=== PATIENT | male | born 2000 | race Caucasian/White ===

== ENCOUNTER 2020-10-10 12:07 | Emergency (ER) | payer MEDICAID, OTHER ==
[~2020-10-10] VITALS: Ht 175.3 cm; Wt 125.0 kg
--- NOTE | 2020-10-10 12:44 | PHYS DOC ---
Past History Past Medical History: Other Additional Past Medical Histor: Palpatations (SAWYER VELAZQUEZ APRN) Past Surgical History: Other Additional Past Surgical Histo: hernia (SAWYER VELAZQUEZ APRN) Alcohol Use: None (SAWYER VELAZQUEZ APRN) General Adult EDM: Chief Complaint: ABDOMINAL PAIN HPI: HPI: Patient is a 20-year-old male who presents with abdominal pain. Patient states on Friday he was working on his truck and the milk crate he was standing on slipped out from under him. Patient states that he fell directly on the márquez latch, and then fell to the ground onto his back. Patient is reporting abdominal pain, nausea. Patient denies hitting his head or loss of consciousness. Patient states that he has been taking ibuprofen and hydrocodone at home for pain with no relief. Patient has history of arrhythmia and asthma. (SAWYER VELAZQUEZ APRN) Review of Systems: Review of Systems: Constitutional: Denies fever or chills Eyes: Denies change in visual acuity HENT: Denies nasal congestion or sore throat Respiratory: Denies cough or shortness of breath Cardiovascular: Denies chest pain or edema GI: Reports abdominal pain, nausea. Denies vomiting, bloody stools or diarrhea : Denies dysuria Musculoskeletal: Denies back pain or joint pain Integument: Denies rash Neurologic: Denies headache, focal weakness or sensory changes Endocrine: Denies polyuria or polydipsia Lymphatic: Denies swollen glands Psychiatric: Denies depression or anxiety (SAWYER VELAZQUEZ APRN) Allergies: Allergies: Allergies Coded Allergies Type Severity Reaction Last Updated Verified shellfish derived Allergy Unknown 10/10/20 Yes (SAWYER VELAZQUEZ APRN) Physical Exam: PE: Constitutional: Well developed, well nourished, no acute distress, non-toxic appearance. [] HENT: Normocephalic, atraumatic, bilateral external ears normal, oropharynx moist, no oral exudates, nose normal. [] Eyes: PERRLA, EOMI, conjunctiva normal, no discharge. [] Neck: Normal range of motion, no tenderness, supple, no stridor. [] Cardiovascular:Heart rate regular rhythm, no murmur [] Lungs & Thorax: Bilateral breath sounds clear to auscultation [] Abdomen: Bowel sounds normal, soft, generalized tenderness Skin: Warm, dry, no erythema, no rash. [] Back: No tenderness, no CVA tenderness. [] Extremities: No tenderness, no cyanosis, no clubbing, ROM intact, no edema. [] Neurologic: Alert and oriented X 3, normal motor function, normal sensory function, no focal deficits noted. [] Psychologic: Affect normal, judgement normal, mood normal. [] (SAWYER VELAZQUEZ APRN) Current Patient Data: Vital Signs: Vital Signs Date Time Temp Pulse Resp B/P (MAP) Pulse Ox O2 Delivery O2 Flow Rate FiO2 10/10/20 12:16 98.2 76 16 136/86 (103) 98 Room Air (SAWYER VELAZQUEZ APRN) EKG: EKG: [] (SAWYER VELAZQUEZ APRN) Radiology/Procedures: Radiology/Procedures: []EXAMINATION: (CT ABDOMEN WITHOUT IV CONTRAST) CLINICAL HISTORY: FALL ONTO TAILGATE, ABDOMINAL PAIN TECHNIQUE: CT of the abdomen was performed using standard technique, scanning from just above the dome of the diaphragm to the iliac crests without intravenous contrast. CT Dose Reduction Employed: One or more of the following individualized dose re duction techniques were utilized for this examination: 1. Automated exposure control 2. Adjustment of the mA and/or kV according to patient size 3. Use of iterative reconstruction technique. COMPARISON: None FINDINGS: Partially visualized heart and lung bases unremarkable. Liver, gallbladder, pancreas, spleen, and adrenal glands unremarkable. Small nonobstructive calculi in the lower pole the right kidney. Kidneys otherwise unremarkable. Partially visualized small bowel and colon demonstrate no evidence of abnormal dilation. Level of the appendix not included on the available images. No abdominal aortic aneurysm. Prominent to borderline enlarged mesenteric lymph nodes throughout the abdomen measuring up to 1 cm in short axis within the right lower quadrant. No evidence of acute osseous abnormality. IMPRESSION: No evidence of acute abdominal abnormality. Prominent to borderline enlarged mesenteric lymph nodes as described, nonspecific but possibly reactive or related to mesenteric adenitis. Electronically signed by: Eduardo Barahona DO (10/10/2020 1:27 PM) [facility] (SAWYER VELAZQUEZ APRN) Heart Score: C/O Chest Pain: No Risk Factors: Risk Factors: DM, Current or recent (<one month) smoker, HTN, HLP, family history of CAD, obesity. Risk Scores: Score 0 - 3: 2.5% MACE over next 6 weeks - Discharge Home Score 4 - 6: 20.3% MACE over next 6 weeks - Admit for Clinical Observation Score 7 - 10: 72.7% MACE over next 6 weeks - Early Invasive Strategies (SAWYER VELAZQUEZ APRN) Course & Med Decision Making: Course & Med Decision Making Pertinent Labs and Imaging studies reviewed. (See chart for details) [] Patient has been seen in the emergency room with generalized abdominal pain after a fall on Friday. Patient states he was working under the márquez of his truck, standing on a milk crate, when the milk crate fell out from underneath him. Patient states he fell directly onto the márquez latch, and then fell to the ground onto his back. Patient is reporting abdominal pain, nausea since Friday. CT of abdomen ordered to rule out any laceration or injury. UA ordered to rule hematuria. Chest x-ray ordered to rule out any fractures. CBC and BMP ordered. Patient is alert and oriented. Patient is hemodynamically stable. Chest x-ray is negative for any acute abnormalities. All labs unremarkable. WBCs 11.0, hemoglobin 14.7, creatinine 0.9. CT of abdomen without contrast ordered due to possible allergy to contrast. Patient is requesting medication for pain. 4mg, morphine given. CT of abdomen is negative for any acute abnormalities. Patient instructed to take ibuprofen and Tylenol at home for discomfort. Patient to follow-up with PCP for further evaluation. Patient seen and hemodynamically stable and able to ambulate on his own of the emergency room. Patient is appreciative and okay with discharge plan. (SAWYER VELAZQUEZ APRN) Dragon Disclaimer: Alexsander Disclaimer: This electronic medical record was generated, in whole or in part, using a voice recognition dictation system. (SAWYER VELAZQUEZ APRN) Attending Co-Sign The patient was seen and interviewed as well as examined at the bedside. The chart was reviewed. The case was discussed. Agree with the plan of care. (BRAIN ARMENDARIZ DO) Departure Departure: Impression: Primary Impression: Abdominal trauma Qualified Codes: S39.91XA - Unspecified injury of abdomen, initial encounter Disposition: HOME / SELF CARE / HOMELESS Condition: STABLE Referrals: JAMMIE MUHAMMAD MD (PCP) Patient Instructions: Abdominal Pain Additional Instructions: You are seen in the emergency room for abdominal pain after a fall onto your foot latch. We did a CT of your abdomen which was negative for any acute abnormalities. Your chest x-ray was negative. All of your lab work was unremarkable. You can take ibuprofen and Tylenol at home for discomfort. Please follow-up with your PCP for further management. Please return to the emergency room with worsening symptoms or concerns. EMERGENCY DEPARTMENT GENERAL DISCHARGE INSTRUCTIONS Thank you for coming to [facility] (ED) today and trusting us with you care. We trust that you had a positivie experience in our Emergency Department. If you wish to speak to the department management, you may call the director at [phone]. YOUR FOLLOW UP INSTRUCTIONS ARE FOLLOWS: 1. Do you have a private Doctor? If you do not have a private doctor, please ask for a resource list of physicians or clinics that may be able to assist you with follow up care. 2. The Emergency Physician has interpreted your x-rays. The X-Ray specialist will also review them. If there is a change in the findings, you will be notified in 48 hours when at all possible. 3. A lab test or culture has been done, your results will be reviewed and you will be notified if you need a change in treatment. ADDITIONAL INSTRUCTIONS AND INFORMATION: 1. Your care today has been supervised by a physician who is specially trained in emergency care. Many problems require more than one evaluation for a complete diagnosis and treatment. We recommend that you schedule your follow up appointment as recommended to ensure complete treatment of you illness or injury. If you are unable to obtain follow up care and continue to have a problem, or if your condition worsens, we recommend that you return to the ED. 2. We are not able to safely determine your condition over the phone nor are we able to give sound medical advice over the phone. For these safety reasons, if you call for medical advice we will ask you to come to the ED for further evaluation. 3. If you have any questions regarding these discharge instructions please call the ED at [phone]. SAFETY INFORMATION: In the interest of safety, wellness, and injury prevention; we encourage you to wear your sealbelt, if you smoke; quite smoking, and we encourage family to use a protective helmet for bicycling and other sporting events that present an increased risk for head injury. IF YOUR SYMPTOMS WORSEN OR NEW SYMPTOMS DEVELOP, OR YOU HAVE CONCERNS ABOUT YOUR CONDITION; OR IF YOUR CONDITION WORSENS WHILE YOU ARE WAITING FOR YOUR FOLLOW UP APPOINTMENT; EITHER CONTACT YOUR PRIMARY CARE DOCTOR, THE PHYSICIAN WHOSE NAME AND NUMBER YOU WERE GIVEN, OR RETURN TO THE ED IMMEDIATELY. SAWYER VELAZQUEZ APRN October 10, 2020 12:44 BRAIN ARMENDARIZ DO October 13, 2020 08:23
[2020-10-10] MEDS ORDERED: IOHEXOL 300 MG/ML 75 ML VIAL. IV ONE (12:45)
[2020-10-10] MEDS ORDERED: CONTRAST GIVEN. MC PRN (13:00)
[2020-10-10 13:02] LABS: BASO # 0.1 x10^3/uL (0.0-0.2); BASO % 1 % (0-3); EOS # 0.1 x10^3/uL (0.0-0.7); EOS % 1 % (0-3); HEMATOCRIT 44.4 % (39.0-53.0); HEMOGLOBIN 14.7 g/dL (13.0-17.5); LYMPH # 1.9 x10^3/uL (1.0-4.8); LYMPH % 18 % (24-48); MEAN CORPUSCULAR HEMOGLOBIN 28 pg (25-35); MEAN CORPUSCULAR HGB CONC 33 g/dL (31-37); MEAN CORPUSCULAR VOLUME 84 fL (79-100); MONO # 0.8 x10^3/uL (0.0-1.1); MONO % 7 % (0-9); NEUT # 8.1 x10^3uL (1.8-7.7); NEUT % 74 % (31-73); PLATELET COUNT 298 x10^3/uL (140-400); RED BLOOD COUNT 5.27 x10^6/uL (4.30-5.70); RED CELL DISTRIBUTION WIDTH 14.7 % (11.5-14.5)
[2020-10-10 13:08] LABS: CALCIUM 9.1 mg/dL (8.5-10.1); CREATININE 0.9 mg/dL (0.7-1.3); GFR 105.5; POTASSIUM 3.9 mmol/L (3.5-5.1)
--- NOTE | 2020-10-10 13:15 | RAD ---
Single AP view of the chest. Comparison: None. Indication: Pain after fall Findings: The heart is not enlarged. There is no pneumothorax or effusion. No air space or interstitial diseas e. Impression: 1. No acute cardiopulmonary process. Electronically signed by: Stephen Rhodes MD (10/10/2020 1:12 PM) [id number]
--- NOTE | 2020-10-10 13:29 | RAD ---
EXAMINATION: (CT ABDOMEN WITHOUT IV CONTRAST) CLINICAL HISTORY: FALL ONTO TAILGATE, ABDOMINAL PAIN TECHNIQUE: CT of the abdomen was performed using standard technique, scanning from just above the dom e of the diaphragm to the iliac crests without intravenous contrast. CT Dose Reduction Employed: One or more of the following individualized dose reduction techniques wer e utilized for this examination: 1. Automated exposure control 2. Adjustment of the mA and/or kV ac cording to patient size 3. Use of iterative reconstruction technique. COMPARISON: None FINDINGS: Partially visualized heart and lung bases unremarkable. Liver, gallbladder, pancreas, spleen, and adrenal glands unremarkable. Small nonobstructive calculi in the lower pole the right kidney. Kidneys otherwise unremarkable. Partially visualized small bowel and colon demonstrate no evidence of abnormal dilation. Level of the appendix not included on the available images. No abdominal aortic aneurysm. Prominent to borderline enlarged mesenteric lymph nodes throughout the abdomen measuring up to 1 cm in short axis within the right lower quadrant. No evidence of acute osseous abnormality. IMPRESSION: No evidence of acute abdominal abnormality. Prominent to borderline enlarged mesenteric lymph nodes as described, nonspecific but possibly reacti ve or related to mesenteric adenitis. Electronically signed by: Eduardo Barahona DO (10/10/2020 1:27 PM) [facility]
[2020-10-10] MEDS ORDERED: MORPHINE SULFATE 4 MG/ML DISP.SYRIN. IV ONE (13:30)
[2020-10-10 14:01] LABS: CLARITY,URINE CLEAR; COLOR,URINE YELLOW
[2020-10-10 14:02] LABS: BACTERIA,URINE 0 /HPF (0-FEW); BILIRUBIN,URINE NEG (NEG); GLUCOSE,URINE NEG (NEG); NITRITE,URINE NEG (NEG); SQUAMOUS EPITHELIAL CELL,UR FEW /LPF
[2020-10-10 14:03] VITALS: BP 135/76
== END 2020-10-10 14:02 | disposition home or self-care (01) ==
LOC: ER 12:19
DX: S39.91XA Unspecified injury of abdomen, initial encounter (principal); Z91.013 Allergy to seafood; W17.89XA Other fall from one level to another, initial encounter; Y93.89 Activity, other specified; Y92.89 Other specified places as the place of occurrence of the external cause; Y99.8 Other external cause status
CPT/HCPCS: 36415; 71045; 74160; 80048; 81001; 85025; 96374; 99285; J2270

== ENCOUNTER 2020-10-11 11:58 | Emergency (ER) | payer MEDICAID ==
[~2020-10-11] VITALS: Ht 175.3 cm; Wt 125.0 kg
[2020-10-11 12:02] VITALS: BP 148/100
[2020-10-11] MEDS ORDERED: BUTALB/APAP/CAFEIN 50/325/40MG TABLET. PO STA (12:54)
[2020-10-11] MEDS ORDERED: DEXAMETHASONE 4 MG TABLET PO ONE (13:00)
--- NOTE | 2020-10-11 13:19 | PHYS DOC ---
Past History Past Medical History: Other Additional Past Medical Histor: Palpatations (FARZAD NICHOLAS APRN) Past Surgical History: Other Additional Past Surgical Histo: hernia (FARZAD NICHOLAS APRN) Alcohol Use: None (FARZAD NICHOLAS APRN) Adult General Chief Complaint Chief Complaint: HEADACHE HPI HPI Patient is a 20-year-old male presents to the emergency department with complaints of a sudden onset of head pain and discomfort with photophobia and nausea that started last Friday night after a slip and fall from a milk crate he was standing on in which he landed on his abdomen which struck the front of a márquez latch, patient states that he woke up on the ground, is not sure if he lost consciousness or not, is not sure if he hit his head, states he does not rememb er the fall. Patient states he was seen here yesterday for abdominal pain and nausea, had some tests run in the emergency department, states he was given morphine and other pain medications that did not help his current 10/10 pain on a 1-10 pain scale. Patient states he was discharged with a 10/10 pain, was told to take Tylenol and/or Motrin for ongoing aches and pains, patient states these medications do not help him with his pain. Patient reports a allergy to iodine, reports a past medical history of rapid heart rate in which he takes prescription metoprolol for, reports a history of asthma. Patient states his primary care physician is Dr. Muhammad. Patient denies any other physical complaints or physical concerns. (FARZAD NICHOLAS APRN) Review of Systems Review of Systems 14 body systems of review of systems have been reviewed. See HPI for pertinent positives and negative responses, otherwise all other systems are negative, nonpertinent or noncontributory. (FARZAD NICHOLAS APRN) Current Medications Current Medications Current Medications Medications (Trade) Dose Ordered Sig/Zachery Start Time Stop Time Status Last Admin Dose Admin Acetaminophen/ Butalbital/ Caffeine (Fioricet) 1 tab 1X STAT 10/11/20 12:54 10/11/20 12:58 DC Dexamethasone (Decadron) 4 mg 1X ONCE 10/11/20 13:00 10/11/20 13:01 DC (FARZAD NICHOLAS APRN) Allergies Allergies Allergies Coded Allergies Type Severity Reaction Last Updated Verified shellfish derived Allergy Unknown 10/10/20 Yes (FARZAD NICHOLAS APRN) Physical Exam Physical Exam Constitutional: Well developed, well nourished, no acute distress, non-toxic appearance. 20-year-old male in no apparent distress. HENT: Normocephalic, atraumatic, bilateral external ears normal, oropharynx moist, no oral exudates, nose normal. Oropharynx moist, pink, no deep tissue infectious process appreciated, no drooling, no trismus appreciated, no lymphadenopathy of the head or neck appreciated. Eyes: PERRLA, EOMI, conjunctiva normal, no discharge. Complains of photophobia during eye exam, satisfactory 6 cardinal eye movements. Neck: Normal range of motion, no tenderness, supple, no stridor. No midline spinal tenderness, no nuchal rigidity, no meningismus signs. Cardiovascular:Heart rate regular rhythm, no murmur, heart sounds S1-S2 to auscultation. Lungs & Thorax: Bilateral breath sounds clear to auscultation no adventitious lung sounds appreciated. Abdomen: Bowel sounds normal, soft, no tenderness, no masses, no pulsatile masses. Skin: Warm, dry, no erythema, no rash. Back: No tenderness, no CVA tenderness. Extremities: No tenderness, no cyanosis, no clubbing, ROM intact, no edema. Neurologic: Alert and oriented X 3, normal motor function, normal sensory function, no focal deficits noted. Psychologic: Affect normal, judgement normal, mood normal. (FARZAD NICHOLAS APRN) EKG EKG [] (FARZAD NICHOLAS APRN) Radiology/Procedures Radiology/Procedures PATIENT: CALI CANADA ACCOUNT: [id number] : 2000 LOCATION: ER AGE: 20 SEX: M EXAM STATUS: REG ER ORD. PHYSICIAN: FARZAD NICHOLAS APRN REASON: FALL, LOSS OF CONSCIOUSNESS PROCEDURE: CT HEAD WO CONTRAST EXAM: CT Head without IV contrast CLINICAL HISTORY: Reason: FALL, LOSS OF CONSCIOUSNESS / Spl. Instructions: / History: COMPARISON: None. TECHNIQUE: Routine CT of the head without contrast. PQRS compliance statement - One or more of the following individualized dose reduction techniques were utilized for this study: 1. Automated exposure control 2. Adjustment of the mA and/or kV according to patient size 3. Use of iterative reconstruction technique FINDINGS: There is no evidence of hemorrhage, mass or extra-axial fluid collection. Mathew-white differentiation is maintained with no evidence of edema. There is no mass effect or shift of the intracranial structures. The ventricles, basilar cisterns and cortical sulci are normal in size and co nfiguration for the patients stated age. The cerebellum and brainstem are unremarkable. The calvarium demonstrates no evidence of fracture or focal lesion. There is normal aeration of the visualized paranasal sinuses and mastoid air cells. The visualized portions of the orbits are normal. IMPRESSION: No evidence for acute intracranial process. Electronically signed by: Nilson Gutierrez MD (10/11/2020 1:35 PM) [id number] DICTATED AND SIGNED BY: NILSON GUTIERREZ MD DATE: 10/11/20 1334 CC: FARZAD NICHOLAS APRN; JAMMIE MUHAMMAD MD ~MTH0 0 (FARZAD NICHOLAS APRN) Heart Score C/O Chest Pain: No Risk Factors: Risk Factors: DM, Current or recent (<one month) smoker, HTN, HLP, family history of CAD, obesity. Risk Scores: Risk Factors: DM, Current or recent (<one month) smoker, HTN, HLP, family history of CAD, obesity. (FARZAD NICHOLAS APRN) Course & Med Decision Making Course & Med Decision Making Pertinent Labs and Imaging studies reviewed. (See chart for details) 20-year-old male, vital signs reviewed, presents to the emergency department with complaints of a sudden onset of headache that started last Friday night. Patient's physical examination was unremarkable. Patient was seen here last night with a chief complaint of abdominal pain after reported slip and fall off of a milk crate and striking his abdomen on the márquez latch of a vehicle he was working on. Patient denied loss of consciousness or head pain or neck pain or striking his head to the provider he seen yesterday in the ED here at [facility] emergency department. Patient also denied any abdominal discomfort during physical examination today. Patient is asking for strong pain medications throughout physical examination stating that "even morphine did not help me ". ED planning will include p.o. Fioricet, p.o. Decadron, CT head without contrast. C-spine CT ruled out need related to negative Nexus C-spine rule. Pending results at this time. Patient CT negative for house radiologist interpretation. Upon reexamination of the patient, patient continues to be in no apparent distress, is not toxic in appearance, patient continues to ask for stronger pain medication, discussed with patient CT findings, discussed with patient need to follow-up with his primary care physician for ongoing pain management. Patient gave verbal understanding of discharge home instructions, follow-up with primary care soon for ongoing pain management, may take [id number] Tylenol or Motrin for aches and pains, return to ER precautions or concerns, patient was amenable to DC planning, patient discharged home without incident. (FARZAD NICHOLAS APRN) Dragon Disclaimer Dragon Disclaimer This electronic medical record was generated, in whole or in part, using a voice recognition dictation system. (FARZAD NICHOLAS APRN) Departure Departure: Impression: Primary Impression: Headache Disposition: HOME / SELF CARE / HOMELESS Condition: GOOD Referrals: JAMMIE MUHAMMAD MD (PCP) Patient Instructions: General Headache Without Cause Additional Instructions: You are seen today in the emergency department for headache, the CT of your head did not show any concerning findings or require immediate attention by a neurology specialist or neurosurgeon, or admission to the hospital. You have expressed your ongoing pain, please take [id number] Tylenol or Motrin for ongoing pain management, please follow-up with your primary care physician for ongoing pain management. Return to the emergency department for worsening symptoms or other concerns. EMERGENCY DEPARTMENT GENERAL DISCHARGE INSTRUCTIONS Thank you for coming to [facility] (ED) today and trusting us with you care. We trust that you had a positivie experience in our Emergency Department. If you wish to speak to the department management, you may call the director at [phone]. YOUR FOLLOW UP INSTRUCTIONS ARE FOLLOWS: 1. Do you have a private Doctor? If you do not have a private doctor, please ask for a resource list of physicians or clinics that may be able to assist you with follow up care. 2. The Emergency Physician has interpreted your x-rays. The X-Ray specialist will also review them. If there is a change in the findings, you will be notified in 48 hours when at all possible. 3. A lab test or culture has been done, your results will be reviewed and you will be notified if you need a change in treatment. ADDITIONAL INSTRUCTIONS AND INFORMATION: 1. Your care today has been supervised by a physician who is specially trained in emergency care. Many problems require more than one evaluation for a complete diagnosis and treatment. We recommend that you schedule your follow up appointment as recommended to ensure complete treatment of you illness or injury. If you are unable to obtain follow up care and continue to have a problem, or if your condition worsens, we recommend that you return to the ED. 2. We are not able to safely determine your condition over the phone nor are we able to give sound medical advice over the phone. For these safety reasons, if you call for medical advice we will ask you to come to the ED for further evaluation. 3. If you have any questions regarding these discharge instructions please call the ED at [phone]. SAFETY INFORMATION: In the interest of safety, wellness, and injury prevention; we encourage you to wear your sealbelt, if you smoke; quite smoking, and we encourage family to use a protective helmet for bicycling and other sporting events that present an increased risk for head injury. IF YOUR SYMPTOMS WORSEN OR NEW SYMPTOMS DEVELOP, OR YOU HAVE CONCERNS ABOUT YOUR CONDITION; OR IF YOUR CONDITION WORSENS WHILE YOU ARE WAITING FOR YOUR FOLLOW UP APPOINTMENT; EITHER CONTACT YOUR PRIMARY CARE DOCTOR, THE PHYSICIAN WHOSE NAME AND NUMBER YOU WERE GIVEN, OR RETURN TO THE ED IMMEDIATELY. Attending Signature Attending Signature I have reviewed the PA/WILDLIFE VETERINARIAN's note and plan of care. I was available for consultation as needed during the patient's visit in the emergency department. I agree with the clinical impression, plan, and disposition. (FARZAD SETHI DO) Problem Qualifiers Primary Impression: Headache Headache type: unspecified Headache chronicity pattern: unspecified pattern Intractability: not intractable Qualified Codes: R51.9 - Headache, unspecified FARZAD NICHOLAS APRN October 11, 2020 13:18 FARZAD SETHI DO October 12, 2020 06:13
--- NOTE | 2020-10-11 13:38 | RAD ---
EXAM: CT Head without IV contrast CLINICAL HISTORY: Reason: FALL, LOSS OF CONSCIOUSNESS / Spl. Instructions: / History: COMPARISON: None. TECHNIQUE: Routine CT of the head without contrast. PQRS compliance statement - One or more of the following individualized dose reduction techniques wer e utilized for this study: 1. Automated exposure control 2. Adjustment of the mA and/or kV according to patient size 3. Use of iterative reconstruction technique FINDINGS: There is no evidence of hemorrhage, mass or extra-axial fluid collection. Mathew-white differentiation is maintained with no evidence of edema. There is no mass effect or shift of the intracranial structures. The ventricles, basilar cisterns and cortical sulci are normal in size and configuration for the geoff ents stated age. The cerebellum and brainstem are unremarkable. The calvarium demonstrates no evidence of fracture or focal lesion. There is normal aeration of the visualized paranasal sinuses and mastoid air cells. The visualized portions of the orbits are normal. IMPRESSION: No evidence for acute intracranial process. Electronically signed by: Nilson Mccallum MD (10/11/2020 1:35 PM) [id number]
== END 2020-10-11 14:15 | disposition home or self-care (01) ==
LOC: ER 11:58
DX: R51.9 Headache, unspecified (principal); H53.143 Visual discomfort, bilateral; R11.0 Nausea; Z91.018 Allergy to other foods; W01.0XXA Fall on same level from slipping, tripping and stumbling without subsequent striking against object, initial encounter; Y93.89 Activity, other specified; Y92.89 Other specified places as the place of occurrence of the external cause; Y99.8 Other external cause status
CPT/HCPCS: 70450; 99284; J8540

== ENCOUNTER 2020-11-09 20:51 | Emergency (ER) | payer MEDICAID ==
[~2020-11-09] VITALS: Ht 175.3 cm; Wt 127.2 kg
--- NOTE | 2020-11-09 20:57 | PHYS DOC ---
Past History Past Medical History: Anxiety, Arrhythmia, Depression Additional Past Medical Histor: Palpatations Past Surgical History: Other Additional Past Surgical Histo: hernia Alcohol Use: None General Adult EDM: Chief Complaint: PSYCH EVALUATION HPI: HPI: ".. I thinking about killing my self.. I had this relationship with a girl on the internet.. and I think.. I ve be taken for $5, 200 . 00 dollars.. and that made very depressed.. ". I ve been depressed before.. but never this bad..." Patient is a 20 year old male who presents with above hx and complaints suicidal ideation. Patient has past medical history of anxiety, depression, palpitations, migraine headaches,. Patient developed severe depression over the Internet relationship that he gave $5,200 . Patient reportedly was sent a check for $ 5, 200 to deposit in his account, and in turn was to buy $5,200 Bitcoin which he forward to her. Eventually the check he deposited from [facility] did not clear and he became responsible for $5,300 due the processing charges . Patient became very depressed about the situation and entertain the thought of suicide. Patient has sought different plans of how to kill himself. Patient denies other current health problems other than recent upper respiratory infection.. Patient has had past history of palpitations.. Patient denies any travel. No severe ill contacts. No history immunosuppression. Patient has not received Covid vaccination. Patient has no legal issues. Patient denies any abuse of illicit substances. Patient normally follows with Dr. Siegel. Review of Systems: Review of Systems: Constitutional: Denies fever or chills Eyes: Denies change in visual acuity HENT: Denies nasal congestion or sore throat . Recently getting over a upper respiratory infection. Respiratory: Denies cough or shortness of breath Cardiovascular: Denies chest pain or edema GI: Denies abdominal pain, nausea, vomiting, bloody stools or diarrhea : Denies dysuria Musculoskeletal: Denies back pain or joint pain Integument: Denies rash Neurologic: Denies headache, focal weakness or sensory changes Endocrine: Denies polyuria or polydipsia Lymphatic: Denies swollen glands Psychiatric: Complains of suicidal ideation, depression and anxiety Family History: Family History: Noncontributory to presentation Current Medications: Current Meds: See nursing for home meds Allergies: Allergies: Allergies Coded Allergies Type Severity Reaction Last Updated Verified shellfish derived Allergy Unknown 10/10/20 Yes Physical Exam: PE: Constitutional: Moderate acute emotional distress, non-toxic appearance. [] HENT: Normocephalic, atraumatic, bilateral external ears normal, oropharynx mois t, no oral exudates, nose normal. [] Eyes: PERRLA, EOMI, conjunctiva normal, no discharge. Glasses Neck: Normal range of motion, no tenderness, supple, no stridor. [] Cardiovascular: Tachycardia heart rate regular rhythm, no murmur [] Lungs & Thorax: Bilateral breath sounds clear to auscultation [] Abdomen: Bowel sounds normal, soft, no tenderness, no masses, no pulsatile masses. Surgical scar Skin: Warm, dry, no erythema, no rash. Tattoos.* [place] on Left upper chest wall. Back: No tenderness, no CVA tenderness. [] Extremities: No tenderness, no cyanosis, no clubbing, ROM intact, no edema. [] Neurologic: Alert and oriented X 3, normal motor function, normal sensory function, no focal deficits noted. [] No cording noted. Psychologic: Affect anxious, judgement normal, mood depressed. Admits to suicidal ideation and developing plans for suicide EKG: EKG: My interpretation EKG shows a sinus tachycardia 109 bpm. No acute morphology other than the rate. [] Radiology/Procedures: Radiology/Procedures: [] Heart Score: C/O Chest Pain: N/A HEART Score for Chest Pain: HEART Score for Chest Pain Response (Comments) Value History Slighlty/Non-Suspicious 0 ECG Normal 0 Age < 45 0 Risk Factors 1 or 2 Risk Factors 1 Troponin < Normal Limit 0 Total 1 Risk Factors: Risk Factors: DM, Current or recent (<one month) smoker, HTN, HLP, family history of CAD, obesity. Risk Scores: Score 0 - 3: 2.5% MACE over next 6 weeks - Discharge Home Score 4 - 6: 20.3% MACE over next 6 weeks - Admit for Clinical Observation Score 7 - 10: 72.7% MACE over next 6 weeks - Early Invasive Strategies Course & Med Decision Making: Course & Med Decision Making Pertinent Labs and Imaging studies reviewed. (See chart for details) Psych report by PET team Patient accepted at [facility]. Dr. Griffin Impression: 1. Anxiety 2. Depression 3. Suicidal ideation 4. Rapid COVID negative [] Dragon Disclaimer: Dragon Disclaimer: This electronic medical record was generated, in whole or in part, using a voice recognition dictation system. Departure Departure: Referrals: JAMMIE SIEGEL MD (PCP) Alexsander Disclaimer This chart was dictated in whole or in part using Voice Recognition software in a busy, high-work load, and often noisy Emergency Department environment. It may contain unintended and wholly unrecognized errors or omissions. NURYS CABRERA MD Nov 09, 2020 20:57
--- NOTE | 2020-11-09 21:19 | EKG ---
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
[2020-11-09] MEDS: IV RINGERS SOLUTION,LACTATED 1,000 ML IV SCH (21:28)
[2020-11-09 21:35] LABS: BASO # 0.2 x10^3/uL (0.0-0.2); BASO % 2 % (0-3); EOS # 0.4 x10^3/uL (0.0-0.7); EOS % 2 % (0-3); HEMATOCRIT 46.5 % (39.0-53.0); HEMOGLOBIN 15.2 g/dL (13.0-17.5); LYMPH # 3.5 x10^3/uL (1.0-4.8); LYMPH % 22 % (24-48); MEAN CORPUSCULAR HEMOGLOBIN 28 pg (25-35); MEAN CORPUSCULAR HGB CONC 33 g/dL (31-37); MEAN CORPUSCULAR VOLUME 85 fL (79-100); MONO # 1.1 x10^3/uL (0.0-1.1); MONO % 7 % (0-9); NEUT # 10.5 x10^3uL (1.8-7.7); NEUT % 67 % (31-73); PLATELET COUNT 321 x10^3/uL (140-400); RED CELL DISTRIBUTION WIDTH 14.4 % (11.5-14.5); WHITE BLOOD COUNT 15.7 x10^3/uL (4.0-11.0)
[2020-11-09 21:36] LABS: % LYMPHS 29 % (24-48); % MONOS 5 % (0-10); % SEGS 66 % (35-66)
[2020-11-09 21:37] LABS: PLT ESTIMATE ADEQUATE (ADEQUATE)
[2020-11-09 21:49] LABS: CALCIUM 10.1 mg/dL (8.5-10.1); GFR 93.4; POTASSIUM 4.2 mmol/L (3.5-5.1)
[2020-11-09 21:55] LABS: BILIRUBIN,URINE NEG (NEG); CLARITY,URINE CLEAR; COLOR,URINE YELLOW; GLUCOSE,URINE NEG (NEG); NITRITE,URINE NEG (NEG); UROBILINOGEN,URINE 0.2 mg/dL (0.2 mg/dL)
[2020-11-09 21:56] LABS: BACTERIA,URINE 0 /HPF (0-FEW); RBC,URINE 0 /HPF (0-2); SQUAMOUS EPITHELIAL CELL,UR OCC /LPF; WBC,URINE 0 /HPF (0-4)
[2020-11-09 21:57] LABS: ALBUMIN 3.8 g/dL (3.4-5.0); DIRECT BILIRUBIN 0.1 mg/dL (0.0-0.2); TOTAL BILIRUBIN 0.3 mg/dL (0.2-1.0); TOTAL PROTEIN 8.6 g/dL (6.4-8.2)
[2020-11-09 21:58] LABS: ETHANOL < 10 mg/dL (0-10); SALIC < 2.8 mg/dL (2.8-20.0)
[2020-11-09 21:59] LABS: ACETAMIN < 2.0 mcg/mL (10-30)
[2020-11-09 22:56] LABS: BARBITURATES NEG (NEG); BENZODIAZEPINES NEG (NEG); CANNABINOIDS NEG (NEG); COCAINE NEG (NEG); METHADONE NEG (NEG); OPIATES NEG (NEG); PHENCYCLIDINE NEG (NEG)
[2020-11-09 23:00] LABS: AMPHETAMINE/METHAMPHETAMINE NEG (NEG)
[2020-11-10 03:35] VITALS: BP 142/88
== END 2020-11-10 03:44 ==
LOC: ER 20:51
DX: R45.851 Suicidal ideations (principal); F41.9 Anxiety disorder, unspecified; F32.9 Major depressive disorder, single episode, unspecified; Z20.822 Contact with and (suspected) exposure to COVID-19
CPT/HCPCS: 36415; 80048; 80076; 80307; 80329; 81001; 84484; 85007; 85025; 87426; 93005; 96360; 99285; C9803; G0480; J7120; U0003

== ENCOUNTER 2021-03-21 21:08 | Emergency (ER) | payer MEDICAID ==
[~2021-03-21] VITALS: Ht 175.3 cm; Wt 127.2 kg
--- NOTE | 2021-03-21 21:12 | PHYS DOC ---
Past History Past Medical History: Anxiety, Arrhythmia, Depression Additional Past Medical Histor: Palpatations Past Surgical History: Other Additional Past Surgical Histo: hernia Alcohol Use: None Adult General HPI HPI Patient is an otherwise healthy 20-year-old male who presents to the emergency department with a chief complaint of sore throat, body aches and headache this been going on for about 2 days. Denies any recent traumas, travels, chest pain, shortness of breath, abdominal pain, nausea, vomiting. Denies any known ill contacts. Review of Systems Review of Systems Review of systems otherwise unremarkable except noted in HPI Allergies Allergies Allergies Coded Allergies Type Severity Reaction Last Updated Verified shellfish derived Allergy Unknown 10/10/20 Yes Physical Exam Physical Exam Constitutional: Well developed, well nourished, no acute distress, non-toxic appearance. [] HENT: Normocephalic, bilateral external ears normal, oropharynx moist, oral pharyngeal erythema bilaterally with tonsillar erythema and tonsillar exudates, nose normal. [] Eyes: conjunctiva normal, no discharge. [] Neck: Normal range of motion, no tenderness, supple, no stridor. [] Cardiovascular:Heart rate regular rhythm, no murmur [] Lungs & Thorax: Bilateral breath sounds clear to auscultation [] Abdomen: soft, no tenderness, no masses, no pulsatile masses. [] Skin: Warm, dry, no erythema, no rash. [] Extremities: No tenderness, no cyanosis, no clubbing, ROM intact, no edema. [] Neurologic: Alert and oriented X 3, normal motor function, normal sensory function, no focal deficits noted. [] Psychologic: Affect normal, judgement normal, mood normal. [] EKG EKG [] Radiology/Procedures Radiology/Procedures [] Heart Score C/O Chest Pain: No Risk Factors: Risk Factors: DM, Current or recent (<one month) smoker, HTN, HLP, family history of CAD, obesity. Risk Scores: Risk Factors: DM, Current or recent (<one month) smoker, HTN, HLP, family history of CAD, obesity. Course & Med Decision Making Course & Med Decision Making Patient is a 20-year-old male who presents with a chief complaint of sore throat, body aches and headache [Vital signs notable for tachycardia. Physical exam noted above. Started patient on treatment for strep pharyngitis in the ED given Centor criteria of 5 Discussed all findings with patient. Advised on symptom management at home. Advised to call primary care physician in the morning. Gave return precautions to ED. Patient grateful, verbalized understanding and agreed with plan of discharge. Dragon Disclaimer Cathieon Disclaimer This electronic medical record was generated, in whole or in part, using a voice recognition dictation system. Departure Departure: Impression: Primary Impression: Strep pharyngitis Disposition: HOME / SELF CARE / HOMELESS Condition: GOOD Referrals: JAMMIE MUHAMMAD MD (PCP) Patient Instructions: Strep Throat Additional Instructions: Thank you for coming into the emergency department tonight and allowing us to take care of you. Please read the attached information carefully to go back over things we discussed. You can use Tylenol, ibuprofen, Benadryl and throat lozenges as needed as we discussed. Please follow-up in the morning with your primary care physician update on your ED visit and set up a follow-up as needed. Please come back to the ED with new or concerning symptoms as discussed. Scripts Amoxicillin (AMOXICILLIN) 500 Mg Capsule 1 CAP PO BID for strep for 9 Days, #18 CAP Prov: CARA BELLO MD 03/21/21 CARA BELLO MD Mar 21, 2021 21:12
[2021-03-21] MEDS ORDERED: AMOX500C PO (21:29)
[2021-03-21] MEDS ORDERED: IBUPROFEN 600 MG TABLET. PO ONE (21:30)
[2021-03-21] MEDS ORDERED: ACETAMINOPHEN 500 MG TABLET PO ONE (21:30)
[2021-03-21] MEDS ORDERED: diphenhydrAMINE HCL 25 MG CAPSULE PO ONE (21:30)
[2021-03-21] MEDS ORDERED: guaiFENesin/CODEINE 100mg/10mg 5 ML LIQUID PO PRN (21:30)
[2021-03-21] MEDS ORDERED: DEXAMETHASONE 4 MG TABLET PO ONE (21:30)
[2021-03-21] MEDS ORDERED: AMOXICILLIN 250 MG CAPSULE PO ONE (21:30)
--- NOTE | 2021-03-23 09:36 | NUR ---
PATIENT CONTACTED PER NEGATIVE RESULTS
== END 2021-03-21 21:44 | disposition home or self-care (01) ==
LOC: ER 21:08
DX: J02.0 Streptococcal pharyngitis (principal); R51.9 Headache, unspecified; Z20.822 Contact with and (suspected) exposure to COVID-19
CPT/HCPCS: 87070; 87880; 99284; C9803; J8540; Q0163; U0003

== ENCOUNTER 2021-05-26 10:12 | Emergency (ER) | payer MEDICAID ==
[~2021-05-26] VITALS: Ht 170.2 cm; Wt 129.9 kg
[~2021-05-26 10:12] MED LIST: AMOX500C PO
[2021-05-26] MEDS ORDERED: ALBUTEROL SULFATE 8GM INHALER. INH ONE (10:45)
[2021-05-26] MEDS ORDERED: predniSONE 20 MG TABLET PO ONE (10:45)
[2021-05-26] MEDS ORDERED: METOPROLOL TART IMMED RELEASE 25 MG TABLET. PO ONE (10:45)
--- NOTE | 2021-05-26 10:51 | PHYS DOC ---
Past History Past Medical History: Anxiety, Arrhythmia, Depression Additional Past Medical Histor: SVT? (SAWYER VELAZQUEZ APRN) Past Surgical History: Other Additional Past Surgical Histo: HERNIA (SAWYER VELAZQUEZ APRN) Alcohol Use: Occasionally (SAWYER VELAZQUEZ APRN) General Adult EDM: Chief Complaint: DYSPNEA/RESPIRATOY DISTRESS HPI: HPI: Patient is a 20-year-old male who presents with cough and shortness of breath. Patient states that he has a history of asthma and has been using his inhalers at home. Patient reports that cough has increased in the last week. Patient is coughing up green phlegm. Patient also has history of arrhythmias was to be taking metoprolol. Patient states he has not taken his medication for rate control in a few months. Patient states that he has a prescription for the medication but is just chosen not to take it. Heart rate on arrival was 111 - 120. Patient is afebrile. Denies fevers at home. Patient denies taking ibuprofen or Tylenol at home for symptoms. Denies history of smoking, alcohol, drug use. Patient has not been vaccinated for Covid. (SAWYER VELAZQUEZ APRN) Review of Systems: Review of Systems: ROS At least 10 ROS systems have been reviewed and are negative except as documented in the HPI. General: Negative except as outlined in HPI above. Skin: Negative except as outlined in HPI above. HEENT: Negative except as outlined in HPI above. Neck: Negative except as outlined in HPI above. Respiratory: Negative except as outlined in HPI above.. Cardiovascular: Negative except as outlined in HPI above. Abdomen: Negative except as outlined in HPI above. : Negative except as outlined in HPI above. Back/MSK: Negative except as outlined in HPI above. Neuro: Negative except as outlined in HPI above. Psych: Negative except as outlined in HPI above. (SAWYER VLEAZQUEZ APRN) Allergies: Allergies: Allergies Coded Allergies Type Severity Reaction Last Updated Verified shellfish derived Allergy Unknown 10/10/20 Yes (SAWYER VELAZQUEZ APRN) Physical Exam: PE: Constitutional: Well developed, well nourished, no acute distress, non-toxic appearance. [] HENT: Normocephalic, atraumatic, bilateral external ears normal, oropharynx moist, no oral exudates, nose normal. [] Eyes: PERRLA, EOMI, conjunctiva normal, no discharge. [] Neck: Normal range of motion, no tenderness, supple, no stridor. [] Cardiovascular: Tachycardia Lungs & Thorax: Bilateral breath sounds clear to auscultation [] Abdomen: Bowel sounds normal, soft, no tenderness, no masses, no pulsatile masses. [] Skin: Warm, dry, no erythema, no rash. [] Back: No tenderness, no CVA tenderness. [] Extremities: No tenderness, no cyanosis, no clubbing, ROM intact, no edema. [] Neurologic: Alert and oriented X 3, normal motor function, normal sensory function, no focal deficits noted. [] Psychologic: Affect normal, judgement normal, mood normal. [] (SAWYER VELAZQUEZ APRN) Current Patient Data: Vital Signs: Vital Signs Date Time Temp Pulse Resp B/P (MAP) Pulse Ox O2 Delivery O2 Flow Rate FiO2 05/26/21 10:25 98.4 111 20 156/97 (116) 96 Room Air (SAWYER VELAZQUEZ APRN) EKG: EKG: [] (SAWYER VELAZQUEZ APRN) Radiology/Procedures: Radiology/Procedures: []EXAM: Chest, 2 views. HISTORY: Cough. Shortness of breath. COMPARISON: 10/10/2020 FINDINGS: 2 views of the chest are obtained. There is no infiltrate, pleural effusion or pneumothorax. The heart is normal in size. IMPRESSION: No acute pulmonary finding. Electronically signed by: Katina Garcia MD (05/26/2021 11:22 AM) [id number] (SAWYER VELAZQUEZ APRN) Heart Score: C/O Chest Pain: No Risk Factors: Risk Factors: DM, Current or recent (<one month) smoker, HTN, HLP, family history of CAD, obesity. Risk Scores: Score 0 - 3: 2.5% MACE over next 6 weeks - Discharge Home Score 4 - 6: 20.3% MACE over next 6 weeks - Admit for Clinical Observation Score 7 - 10: 72.7% MACE over next 6 weeks - Early Invasive Strategies (SAWYER VELAZQUEZ APRN) Course & Med Decision Making: Course & Med Decision Making Pertinent Labs and Imaging studies reviewed. (See chart for details) [] Nontoxic-appearing, 20-year-old male presents with cough and shortness of breath. Patient has a history of asthma. Chest x-ray ordered to rule out pneumonia. Patient is afebrile. Patient's heart rate is elevated but patient is to be taking metoprolol for rate control which he states he has not been taking because he is just chosen not to. Patient has prescription at home for his inhaler and for metoprolol. Patient also tested for influenza and Covid. Patient also given 60 mg prednisone. Chest x-ray is unremarkable. Heart rate improved after medication. 90-95 bpm. Patient most likely has bronchitis. Discussed all results with patient. Patient sent home with steroids. Discussed self quarantining until Covid results have returned. Motrin Tylenol at home. Discussed using inhaler at home for symptom control along with continuing taking metoprolol. Patient states that he will start taking his medication as directed by his PCP. Advised patient to return to the emergency room if he had an increase in shortness of breath, uncontrolled fever, uncontrolled vomiting or any concerns. Patient voices understanding of discharge instructions. Patient is hemodynamically sta ble upon disposition. (SAWYER VELAZQUEZ APRN) Cathieon Disclaimer: Alexsander Disclaimer: This electronic medical record was generated, in whole or in part, using a voice recognition dictation system. (SAWYER VELAZQUEZ APRN) Attending Co-Sign The patient was seen and interviewed as well as examined at the bedside. The art was reviewed. The case was discussed. Agree with the plan of care. (BRAIN ARMENDARIZ DO) Departure Departure: Impression: Primary Impression: Bronchitis Disposition: 01 HOME / SELF CARE / HOMELESS Condition: STABLE Referrals: JAMMIE MUHAMMAD MD (PCP) Patient Instructions: Acute Bronchitis, [id number], Asthma, Adult, [id number] Additional Instructions: You're seen in the emergency room for cough and shortness of breath. X-ray was unremarkable. You're tested for influenza along with Covid. Influenza and Covid were also negative. You need to quarantine until results have reported. Results can take up to 24 to 48 h. If you start running a fever, you can take ibuprofen and Tylenol at home. Mucinex DM will help with your cough and symptoms. I have also given you an inhaler to use at home. Make sure that you are starting to take your metoprolol for your heart rate. Your heart rate was slightly elevated. I gave you one dose of metoprolol while in the emergency room. Return to the emergency room if you have worsening symptoms or concerns. EMERGENCY DEPARTMENT GENERAL DISCHARGE INSTRUCTIONS Thank you for coming to [facility] (ED) today and trusting us with you care. We trust that you had a positivie experience in our Emergency Department. If you wish to speak to the department management, you may call the director at [phone]. YOUR FOLLOW UP INSTRUCTIONS ARE FOLLOWS: 1. Do you have a private Doctor? If you do not have a private doctor, please ask for a resource list of physicians or clinics that may be able to assist you with follow up care. 2. The Emergency Physician has interpreted your x-rays. The X-Ray specialist will also review them. If there is a change in the findings, you will be notified in 48 hours when at all possible. 3. A lab test or culture has been done, your results will be reviewed and you will be notified if you need a change in treatment. ADDITIONAL INSTRUCTIONS AND INFORMATION: 1. Your care today has been supervised by a physician who is specially trained in emergency care. Many problems require more than one evaluation for a complete diagnosis and treatment. We recommend that you schedule your follow up appointment as recommended to ensure complete treatment of you illness or injury. If you are unable to obtain follow up care and continue to have a problem, or if your condition worsens, we recommend that you return to the ED. 2. We are not able to safely determine your condition over the phone nor are we able to give sound medical advice over the phone. For these safety reasons, if you call for medical advice we will ask you to come to the ED for further evaluation. 3. If you have any questions regarding these discharge instructions please call the ED at [phone]. SAFETY INFORMATION: In the interest of safety, wellness, and injury prevention; we encourage you to wear your sealbelt, if you smoke; quite smoking, and we encourage family to use a protec tive helmet for bicycling and other sporting events that present an increased risk for head injury. IF YOUR SYMPTOMS WORSEN OR NEW SYMPTOMS DEVELOP, OR YOU HAVE CONCERNS ABOUT YOUR CONDITION; OR IF YOUR CONDITION WORSENS WHILE YOU ARE WAITING FOR YOUR FOLLOW UP APPOINTMENT; EITHER CONTACT YOUR PRIMARY CARE DOCTOR, THE PHYSICIAN WHOSE NAME AND NUMBER YOU WERE GIVEN, OR RETURN TO THE ED IMMEDIATELY. You have been tested for or diagnosed with COVID-19. It is an infection caused by a new type of coronavirus. COVID-19 will cause cold-like or mild flu symptoms in most. It can cause more severe symptoms like problems breathing in some. There is no treatment for COVID-19. The body will clear the infection over time. Self-care will help to ease discomfort. Steps to Take: Self-Care Rest as needed. Healthy habits may help you feel better. Steps include: Choose healthy foods including fruits and vegetables. Drink water throughout the day. Get plenty of sleep each night. If you smoke, try to quit. It may ease breathing. Avoid alcohol. Keep Others Healthy The virus can spread to others. Droplets are released every time you sneeze or c ough. The droplets can get into the mouth, nose, or eyes of people near you and lead to infection. To lower the chances of spreading COVID-19 to others: Stay at home until your doctor has said it is safe to leave. If you tested positive this will mean staying isolated until both of the following are true: At least 7 days have passed since the start of illness. You are free of fever for at least 72 hours without the use of medicine. During this time: - Avoid public areas, events, or transportation. Do not return to work or school until your doctor has said it is safe to do so. - Call ahead if you need to go to a medical center. Let them know you may have COVID-19. It will help them guide you where to go. They may also ask you to wear a facemask when you come to the office. - If you call for emergency medical services, let them know you may have COVID- 19. While at home: - Try to avoid close contact with others. Stay about 6 feet away. - If possible, spend most of your time in a separate room from others. - Use a face mask if you will be in close contact with others such as sharing a room or vehicle. - Have someone wipe down common surfaces in the home. Use household cnc wood lathe operator every day on areas like doorknobs, counters, or sinks. - Cough or sneeze into a tissue. Throw the tissue away right after use. If a tissue is not available, cough or sneeze into your elbow. - Wash your hands often. Wash them after sneezing or coughing. Use soap and water and wash for at least 20 seconds. Alcohol based hand metal cleaner can be used if soap and water is not available. - Do not prepare food for others. Avoid sharing personal items like forks, spoons, or toothbrushes. - Avoid close contact with pets while you are sick. There is no evidence of the virus passing to pets. This is a safety step until more is known about this virus. Isolation can be frustrating. Social interaction can help. Keep in touch with friends and family through phone and tech options. You can still interact with others in your home, just keep a safe distance of about 6 feet. Follow-up: Your doctors office will check in with you to see if there are any changes in your health. You may be asked to keep track of symptoms to share with them. They will also let you know when you are clear to be in public again. Problems to Look Out For: Contact your doctor if your recovery is not going as you expect. Get emergency care if you have problems such as: - Trouble breathing - Nonstop chest pain or pressure - Changes in awareness, confusion, or problems waking - Lips or face have bluish color - Worsening of symptoms If you think you have an emergency, call for emergency medical services right away. As taken from [facility] Prednisone (PREDNISONE) 20 Mg Tablet 3 TAB PO DAILY for allergies for 5 Days, #15 TAB Prov: SAWYER VELAZQUEZ APRN 05/26/21 SAWYER VELAZQUEZ APRN May 26, 2021 10:51 BRAIN ARMENDARIZ DO May 28, 2021 07:12
--- NOTE | 2021-05-26 11:25 | RAD ---
EXAM: Chest, 2 views. HISTORY: Cough. Shortness of breath. COMPARISON: 10/10/2020 FINDINGS: 2 views of the chest are obtained. There is no infiltrate, pleural effusion or pneumothorax . The heart is normal in size. IMPRESSION: No acute pulmonary finding. Electronically signed by: Katina Garcia MD (05/26/2021 11:22 AM) [id number]
[2021-05-26 12:03] LABS: INFLUENZA A PATIENT NEGATIVE (NEGATIVE); INFLUENZA B PATIENT NEGATIVE (NEGATIVE)
[2021-05-26] MEDS ORDERED: PRED20TA PO (12:12)
[2021-05-26 12:15] VITALS: BP 124/69
== END 2021-05-26 12:18 | disposition home or self-care (01) ==
LOC: ER 10:12
DX: J40 Bronchitis, not specified as acute or chronic (principal); F41.9 Anxiety disorder, unspecified; F32.9 Major depressive disorder, single episode, unspecified; Z20.822 Contact with and (suspected) exposure to COVID-19; Z91.013 Allergy to seafood
CPT/HCPCS: 71046; 87804; 94640; 99284; C9803; J7512; U0003; 94664

== ENCOUNTER 2021-06-11 14:25 | Emergency (ER) | payer MEDICAID ==
[~2021-06-11] VITALS: Ht 170.2 cm; Wt 127.8 kg
[~2021-06-11 14:25] MED LIST changes: +PRED20TA PO
--- NOTE | 2021-06-11 17:24 | PHYS DOC ---
Past History Past Medical History: Anxiety, Arrhythmia, Depression Additional Past Medical Histor: SVT? (LOW AGUILAR APRN) Past Surgical History: Other Additional Past Surgical Histo: HERNIA (LOW AGUILAR APRN) Alcohol Use: Occasionally (LOW AGUILAR APRN) General Adult EDM: Chief Complaint: FEVER HPI: HPI: Patient is a 21-year-old male who presents to the emergency department today for green productive cough, fever, chills, shortness of breath, nausea, headache that started this morning. Patient reports that his brother was positive for COVID-19 and he was exposed to him. Patient denies any chest pain, vomiting or loss of taste or smell. Patient took Tylenol at 730 this morning. He rates his pain in his head 10 out of 10. Patient is tachycardic in the emergency department with a heart rate of 152 bpm, he states that he has a history of asthma and arrhythmia but has not taken his metoprolol because he keeps forgetting to take it. (LOW AGUILAR APRN) Review of Systems: Review of Systems: Constitutional: See HPI Respiratory: See HPI Cardiovascular: See HPI GI: See HPI Neuro: See HPI (LOW AGUILAR APRN) Current Medications: Current Meds: Current Medications Medications (Trade) Dose Ordered Sig/Zachery Start Time Stop Time Status Last Admin Dose Admin Acetaminophen (Tylenol) 1,000 mg 1X ONCE 06/11/21 17:30 06/11/21 17:31 UNV Ibuprofen (Motrin) 600 mg 1X ONCE 06/11/21 17:30 06/11/21 17:31 UNV Sodium Chloride 1,000 ml @ 1,000 mls/hr 1X ONCE 06/11/21 17:30 06/11/21 18:29 UNV (LOW AGUILAR APRN) Allergies: Allergies: Allergies Coded Allergies Type Severity Reaction Last Updated Verified shellfish derived Allergy Unknown 10/10/20 Yes (LOW AGUILAR APRN) Physical Exam: PE: Constitutional: Well developed, well nourished, no acute distress, non-toxic appearance. [] HENT: Normocephalic, atraumatic, bilateral external ears normal, oropharynx moist, no oral exudates, nose normal. [] Eyes: PERRL, EOMI, conjunctiva normal, no discharge. [] Neck: Normal range of motion, no tenderness, supple, no stridor. [] Cardiovascular:Heart rate r tachycardic rhythm, no murmur [] Lungs & Thorax: Scattered rhonchi and coarse lung sounds Abdomen: Bowel sounds normal, soft, no tenderness, obese, no masses, no pulsatile masses. [] Skin: Warm, dry, no erythema, no rash. [] Back: Normal range of motion Extremities: No tenderness, no cyanosis, no clubbing, ROM intact, no edema. [] Neurologic: Alert and oriented X 3, normal motor function, normal sensory function, no focal deficits noted. [] Psychologic: Affect normal, judgement normal, mood normal. [] (LOW AGUILAR APRN) EKG: EKG: EKG performed by ER staff at 1734 shows sinus tachycardia with a rate of 145, QTC of 391, no STEMI read by Dr. Lundberg at 1741 [] (LOW AGUILAR APRN) Radiology/Procedures: Radiology/Procedures: []PROCEDURE: PORTABLE CHEST 1V Single AP view of the chest. Comparison: 05/26/2021. Indication: Shortness of air person under investigation for Covid Findings: Low lung volumes again accentuate the heart size. The heart is not enlarged. There is no pneumothorax or effusion. No air space or interstitial disease. Impression: 1. No acute cardiopulmonary process. Electronically signed by: Stephen Rhodes MD (06/11/2021 6:04 PM) [facility] DICTATED AND SIGNED BY: STEPHEN RHODES MD DATE: 06/11/21 180 CC: JAMMIE MUHAMMAD MD; LOW AGUILAR APRN ~MTH0 0 (LOW AGUILAR APRN) Heart Score: C/O Chest Pain: No Risk Factors: Risk Factors: DM, Current or recent (<one month) smoker, HTN, HLP, family history of CAD, obesity. Risk Scores: Score 0 - 3: 2.5% MACE over next 6 weeks - Discharge Home Score 4 - 6: 20.3% MACE over next 6 weeks - Admit for Clinical Observation Score 7 - 10: 72.7% MACE over next 6 weeks - Early Invasive Strategies (LOW AGUILAR APRN) Course & Med Decision Making: Course & Med Decision Making Pertinent Labs and Imaging studies reviewed. (See chart for details) [] Patient presents to the emergency department today for multiple Covid 19 symptoms including cough, fever, chills, headache, shortness of breath, nausea. Patient is tachycardic in the emergency department, he has a history of an arrhythmia but has not been taking his metoprolol because he keeps forgetting to take it. Patient does have coarse and rhonchi noted on auscultation. Work-up in the ER consisted of blood work, EKG, chest x-ray. Patient will be treated with IV fluids and Tylenol and ibuprofen as he has a low-grade fever in the emergency department. Patient's blood work is unremarkable. Chest x-ray shows no acute findings, negative flu, positive COVID-19 rapid test. Following treatment with IV fluids and Tylenol and ibuprofen, patient is still tachycardic with a rate of 139, patient will be given metoprolol which he takes at home and his IV. Heart rate has improved after medication. Patient reports improvement in his symptoms. Patient educated on symptomatic treatment for COVID-19. Patient's vital signs are stable, he is not hypoxic or requiring any oxygen at this time. I discussed with patient all findings and diagnostic testing as well as the need to follow-up with PCP for further evaluation and treatment or return to the ER if any new or worsening symptoms. Strict return precautions were also discussed at length. Patient voiced understanding and agreement with the plan. Patient is hemodynamically stable at the time of disposition. (LOW AGUILAR APRN) Dragon Disclaimer: Dragon Disclaimer: This electronic medical record was generated, in whole or in part, using a voice recognition dictation system. (LOW AGUILAR APRN) Attending Co-Sign The patient was seen and interviewed as well as examined at the bedside. The chart was reviewed. The case was discussed. Agree with the plan of care. (BRAIN ARMENDARIZ DO) Departure Departure: Impression: Primary Impression: COVID-19 Disposition: 01 HOME / SELF CARE / HOMELESS Condition: GOOD Referrals: JAMMIE MUHAMMAD MD (PCP) Patient Instructions: Cough, Adult Additional Instructions: You were seen in the emergency department today for cough, fever, chills and headache. Your blood work was reassuring. Your chest x-ray did not show any acute findings. Your rapid flu test was negative. Your rapid Covid test was positive. Please take Tylenol and/or ibuprofen for your pain or fevers. Continue taking your metoprolol as previously prescribed. Increase your fluids and rest. You can take the cough medications prescribed for you as needed. For shortness of breath, you are being discharged home with an albuterol inhaler that you can use as needed. I would advise you to purchase a pulse oximeter and monitor your oxygen saturations at home, return to the emergency department if your O2 saturation drops below 90%. Follow-up with your primary care provider tomorrow regarding your ER visit. Return to the emergency department if you develop worsening of your shortness of breath, chest pain, high fevers refractory to treatment, intractable nausea or vomiting, weakness. Scripts Albuterol Sulfate (PROAIR HFA INHALER) 8.5 Gm Hfa.aer.ad 2 PUFF IH PRN Q4-6HRS PRN for wheezing for 21 Days, #1 INHALER 0 Refills as needed for wheezing Prov: LOW AGUILAR HEAD OF OPERATION AND LOGISTICS 06/11/21 Benzonatate (BENZONATATE) 200 Mg Capsule 1 CAP PO PRN TID PRN for cough for 7 Days, #21 CAP 0 Refills Prov: LOW AGUILAR HEAD OF OPERATION AND LOGISTICS 06/11/21 LOW AGUILAR HEAD OF OPERATION AND LOGISTICS Jun 11, 2021 17:24 BRAIN ARMENDARIZ DO Jun 13, 2021 14:11
[2021-06-11] MEDS ORDERED: IV NORMAL SALINE 1,000ML 1,000 ML IV ONE (17:30)
[2021-06-11] MEDS ORDERED: IBUPROFEN 600 MG TABLET. PO ONE (17:30)
[2021-06-11] MEDS ORDERED: ACETAMINOPHEN 500 MG TABLET PO ONE (17:30)
[2021-06-11 17:56] LABS: BASO % 0 % (0-3); EOS % 0 % (0-3); HEMATOCRIT 44.5 % (39.0-53.0); HEMOGLOBIN 14.9 g/dL (13.0-17.5); LYMPH # 0.3 x10^3/uL (1.0-4.8); LYMPH % 3 % (24-48); MEAN CORPUSCULAR HEMOGLOBIN 28 pg (25-35); MEAN CORPUSCULAR HGB CONC 34 g/dL (31-37); MEAN CORPUSCULAR VOLUME 84 fL (79-100); MONO # 1.1 x10^3/uL (0.0-1.1); MONO % 10 % (0-9); NEUT # 8.9 x10^3uL (1.8-7.7); NEUT % 86 % (31-73); PLATELET COUNT 231 x10^3/uL (140-400); RED BLOOD COUNT 5.32 x10^6/uL (4.30-5.70); RED CELL DISTRIBUTION WIDTH 14.8 % (11.5-14.5); WHITE BLOOD COUNT 10.4 x10^3/uL (4.0-11.0)
--- NOTE | 2021-06-11 18:07 | RAD ---
Single AP view of the chest. Comparison: 05/26/2021. Indication: Shortness of air person under investigation for Covid Findings: Low lung volumes again accentuate the heart size. The heart is not enlarged. There is no pneumothora x or effusion. No air space or interstitial disease. Impression: 1. No acute cardiopulmonary process. Electronically signed by: Stephen Rhodes MD (06/11/2021 6:04 PM) [facility]
[2021-06-11 18:17] LABS: CALCIUM 8.8 mg/dL (8.5-10.1); CREATININE 0.9 mg/dL (0.7-1.3); GFR 104.6; POTASSIUM 3.6 mmol/L (3.5-5.1)
[2021-06-11 18:22] LABS: INFLUENZA A PATIENT NEGATIVE (NEGATIVE); INFLUENZA B PATIENT NEGATIVE (NEGATIVE)
[2021-06-11] MEDS ORDERED: METOPROLOL TARTRATE 5 MG/5 ML VIAL. IV ONE ×2 (18:30→19:00)
[2021-06-11] MEDS ORDERED: ALBU2.5V8 IH (18:31)
[2021-06-11] MEDS ORDERED: BENZ200C47 PO (18:31)
[2021-06-11 19:04] VITALS: BP 125/51
--- NOTE | 2021-06-12 05:59 | EKG ---
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
== END 2021-06-11 19:24 | disposition home or self-care (01) ==
LOC: ER 14:25
DX: U07.1 COVID-19 (principal); Z91.013 Allergy to seafood
CPT/HCPCS: 36415; 71045; 80048; 84484; 85025; 87426; 87804; 93005; 96361; 96374; 99285; J3490; J7030

== ENCOUNTER 2021-08-29 10:35 | Emergency (ER) | payer MEDICAID ==
[~2021-08-29] VITALS: Ht 170.2 cm; Wt 128.6 kg
[~2021-08-29 10:35] MED LIST changes: +ALBU2.5V8 IH; +BENZ200C47 PO
[2021-08-29] MEDS ORDERED: CYCLOBENZAPRINE 10 MG TABLET. PO ONE (11:00)
[2021-08-29] MEDS ORDERED: KETOROLAC 60 MG/2 ML VIAL. IM ONE (11:00)
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
[2021-08-29 13:10] VITALS: BP 119/61
[2021-08-29] MEDS ORDERED: IBUP-1673 PO (13:17)
[2021-08-29] MEDS ORDERED: CYCL10TA19 PO ×2 (13:17→13:20)
== END 2021-08-29 13:39 | disposition home or self-care (01) ==
LOC: ER 10:35
DX: M54.6 Pain in thoracic spine (principal); M62.830 Muscle spasm of back; Z91.013 Allergy to seafood
CPT/HCPCS: 96372; 99284; J1885

== ENCOUNTER 2021-08-31 12:13 | Emergency (ER) | payer MEDICAID ==
[~2021-08-31] VITALS: Ht 170.2 cm; Wt 128.6 kg
[~2021-08-31 12:13] MED LIST changes: +CYCL10TA19 PO; +IBUP-1673 PO
[2021-08-31] MEDS ORDERED: KETOROLAC 30 MG/ML VIAL. IM ONE (15:15)
[2021-08-31] MEDS ORDERED: ORPHENADRINE CITRATE 60 MG/2 ML VIAL. IM ONE (15:15)
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
[2021-08-31 16:27] VITALS: BP 131/73
== END 2021-08-31 16:29 | disposition home or self-care (01) ==
LOC: ER 12:13
DX: S20.221D Contusion of right back wall of thorax, subsequent encounter (principal); R51.9 Headache, unspecified; M25.511 Pain in right shoulder; F41.9 Anxiety disorder, unspecified; F32.9 Major depressive disorder, single episode, unspecified; Z91.013 Allergy to seafood; W17.89XD Other fall from one level to another, subsequent encounter
CPT/HCPCS: 96372; 99284; J1885; J2360